=== PATIENT | male | born 1975 | race Caucasian/White ===

== ENCOUNTER 2017-11-27 07:05 | Emergency (ER) | payer MEDICAID ==
[~2017-11-27] VITALS: Ht 177.8 cm; Wt 71.0 kg
[~2017-11-27 07:05] MED LIST: NO HOME MEDS
[2017-11-27 08:02] VITALS: BP 130/76
== END 2017-11-27 08:07 | disposition left against medical advice (07) ==
LOC: ER 07:06
DX: M79.89 Other specified soft tissue disorders (principal); Z53.21 Procedure and treatment not carried out due to patient leaving prior to being seen by health care provider

== ENCOUNTER 2020-02-24 18:14 | Emergency (ER) | payer MEDICAID ==
[~2020-02-24] VITALS: Ht 177.8 cm; Wt 80.0 kg
[2020-02-24 18:53] VITALS: BP 114/73
== END 2020-02-24 19:18 | disposition home or self-care (01) ==
LOC: ER 18:14
DX: M25.522 Pain in left elbow (principal); F12.90 Cannabis use, unspecified, uncomplicated; F15.90 Other stimulant use, unspecified, uncomplicated; Z98.890 Other specified postprocedural states; Y04.0XXA Assault by unarmed brawl or fight, initial encounter; Y93.89 Activity, other specified; Y92.89 Other specified places as the place of occurrence of the external cause; Y99.9 Unspecified external cause status
CPT/HCPCS: 71046; 73080; 73090; 99284